=== PATIENT | female | born 1995 | race Caucasian/White ===

== ENCOUNTER 2017-03-04 20:12 | Emergency (ER) | payer BC ==
[~2017-03-04] VITALS: Ht 154.9 cm; Wt 68.0 kg
[2017-03-04 20:13] VITALS: BP 138/90; PULSE 110; RESP 15; TEMP 98.5; O2SAT 100
--- NOTE | 2017-03-04 21:16 | PD ---
HPI Chief Complaint: Injury Time Seen by Provider: 21:09 Travel History International Travel<30 days: No Contact w/Intl Traveler<30days: No Traveled to known affect area: No History of Present Illness HPI 21-year-old white female presents to emergency Department with complaints of right ankle pain after an inversion injury earlier this afternoon. She states that she had heard a pop in her ankle. Since then she's had pain down into her foot. She has attempted to rest it, elevate and ice it without relief. She states the pain is moderate but can be more severe with weightbearing. No alleviating factors. No other injuries. PFS Past Medical History Narrative Medical Anxiety, depression, right ankle sprain, right ankle fracture Anxiety: Yes Depression: Yes Diminished Hearing: No Tetanus Vaccination: < 5 Years Influenza Vaccination: No ?: Not LMP: 02/22/17 : 1 Para: 0 Miscarriage: 1 Past Surgical History Narrative Surgical Tonsillectomy Tonsillectomy: Yes Social History Alcohol Use: Yes Tobacco Use: Yes Substance Use: No Allergies-Medications (Allergen,Severity, Reaction): Coded Allergies: Sulfa (Sulfonamide Antibiotics) (Verified Allergy, Severe, 03/04/17) Reported Meds & Prescriptions Reported Meds & Active Scripts Active Diclofenac Sodium DR (Diclofenac Sodium) 75 Mg Tabdr 75 Mg PO BID Review of Systems General / Constitutional: No: Fever Eyes: No: Visual changes HENT: No: Headaches Cardiovascular: No: Chest Pain or Discomfort Respiratory: No: Shortness of Breath Gastrointestinal: No: Abdominal Pain Genitourinary: No: Dysuria Musculoskeletal: Positive: Arthralgias, Limited ROM, Edema, Pain Skin: No Rash Neurologic: No: Weakness Psychiatric: No: Depression Endocrine: No: Polydipsia Hematologic/Lymphatic: No: Easy Bruising Physical Exam Narrative GENERAL: This is a well-nourished, well-developed patient, in no apparent distress. SKIN: No rashes, ecchymoses or lesions. Warm and dry. HEAD: Atraumatic. Normocephalic. EYES: PERRL, EOMI, no discharge or injection. No scleral icterus. EARS: Clear NOSE: Nasal turbinates appear normal. THROAT: Mucosa pink and moist. Airway patent. NECK: Trachea midline. supple, moves head freely. LUNGS: Clear to auscultation. CV: Regular in rhythm. ABDOMEN: Soft nontender. EXT: No clubbing cyanosis. Examination of the right lower extremity reveals pain to the anterior talar fibula ligament. It is minimal swelling. The skin is intact. Mild tenderness over the lateral malleolus. No pain on the medial malleolus. No pain in the Achilles or heel. No distal forefoot tenderness or pain. Intact sensation with good distal pulses. The skin is intact. No pain in the knee or hip. The left lower extremity as well as upper extremities are unremarkable for acute bony tenderness or deformity. Neurovascular intact. Data Data Last Documented VS Vital Signs Date Time Temp Pulse Resp B/P (MAP) Pulse Ox O2 Delivery O2 Flow Rate FiO2 03/04/17 20:13 98.5 110 15 138/90 (106) 100 Room Air Orders Orders Ankle, Complete ([id number]) (03/04/17 21:12) MDM Medical Decision Making Medical Screen Exam Complete: Yes Emergency Medical Condition: Yes Medical Record Reviewed: Yes Interpretation(s) Right ankle: Negative for acute fracture. Differential Diagnosis MDM: High Differential diagnoses: Fracture, sprain, strain, dislocation, contusion, neurovascular injury Narrative Course X-rays negative for acute fracture. Patient given Juan wrap, crutches, Motrin 600 mg by mouth. This is right ankle sprain Diagnosis Primary Impression: right ankle sprain Patient Instructions: General Instructions Additional Instructions: Rest. Elevation. Ice packs for the next 3 days. Juan wrap and crutches. No weight-bearing and then progress to weight-bearing as tolerated. Medications as directed Follow-up with an orthopedist or your doctor in one week. Return to the ER if any problems Med/Other Pt SpecificInfo: Prescription(s) given Scripts Diclofenac Sodium DR (Diclofenac Sodium DR) 75 Mg Tabdr 75 MG PO BID, #20 TAB 0 Refills Prov: Esteban Singh MD 03/04/17 Disposition: 01 DISCHARGE HOME Condition: Stable Bobby Singleton Mar 04, 2017 21:16
[2017-03-04] MEDS ORDERED: DICL75TA PO (21:26)
[2017-03-04] MEDS ORDERED: IBUPROFEN 600 MG TAB PO ONE (21:30)
--- NOTE | 2017-03-04 21:35 | RADRPT ---
EXAM DATE/TIME: 03/04/2017 21:21 [facility] COMPARISON: No previous studies available for comparison. INDICATIONS : Fell today, heard a pop on lateral side of ankle. MEDICAL HISTORY : None. SURGICAL HISTORY : None. ENCOUNTER: Initial ACUITY: 1 day PAIN SCORE: 7/10 LOCATION: Right lateral side of ankle FINDINGS: Three view exam was performed of the right ankle. The bony structures are in normal alignment. No e vidence of fracture, dislocation, or soft tissue swelling. The ankle mortise is intact. No radiopaq ue foreign bodies are seen. Bony mineralization is normal. CONCLUSION: Normal examination for a patient of this age. Bobby Tatum MD on March 04, 2017 at 21:32 Board Certified Radiologist. This report was verified electronically.
== END 2017-03-04 22:44 | disposition home or self-care (01) ==
LOC: NEPK 20:12
DX: S93.401A Sprain of unspecified ligament of right ankle, initial encounter (principal); F41.9 Anxiety disorder, unspecified; F32.9 Major depressive disorder, single episode, unspecified; X50.9XXA Other and unspecified overexertion or strenuous movements or postures, initial encounter; Z88.2 Allergy status to sulfonamides; Z79.899 Other long term (current) drug therapy; Z72.0 Tobacco use
CPT/HCPCS: 73610; 99283; E0113

== ENCOUNTER 2017-04-23 10:00 | Emergency (ER) | payer OTHER, BC ==
[~2017-04-23] VITALS: Ht 154.9 cm; Wt 68.0 kg
[~2017-04-23 10:00] MED LIST: DICL75TA PO
[2017-04-23 10:03] VITALS: BP 150/90; PULSE 104; RESP 16; TEMP 98; O2SAT 99
[2017-04-23 10:07] VITALS: PULSE 92
[2017-04-23] MEDS ORDERED: NORG1TAB29 PO (10:23)
[2017-04-23] MEDS ORDERED: ONDANSETRON ODT 4 MG TAB PO ONE (10:30)
[2017-04-23] MEDS ORDERED: ACETAMINOPHEN 325 MG TAB PO ONE (10:30)
--- NOTE | 2017-04-23 10:31 | PD ---
HPI Chief Complaint: Head Injury Time Seen by Provider: 10:13 Travel History International Travel<30 days: No Contact w/Intl Traveler<30days: No Traveled to known affect area: No History of Present Illness HPI The patient is a 21-year-old female who presents to the emergency department after closed head injury at work. The patient states she struck the left aspect of her head against a bench while she was vacuuming. The patient states she saw "stars" after she struck her head. The patient then developed a left-sided headache and has had 3 episodes of nausea and vomiting. The patient denies any visual acuity changes, focal deficits, numbness, tingling, or weakness of the extremities. She does complain of a left-sided headache after striking her head with the nausea and vomiting. She denies taking any anticoagulants. She is currently on oral contraceptives. Symptoms are moderate , exacerbated after she struck her head on a bench, and there are no current alleviating factors. The accident occurred at 7 AM. [facility] [place] Past Medical History Medical History: Denies Significant Hx ?: Not : 1 Para: 0 Miscarriage: 1 Past Surgical History Narrative Surgical Tonsillectomy, wisdom tooth surgery Tonsillectomy: Yes Other Surgery: Yes (WISDON TEETH) Social History Alcohol Use: Yes Tobacco Use: Yes Substance Use: No Allergies-Medications (Allergen,Severity, Reaction): Coded Allergies: Sulfa (Sulfonamide Antibiotics) (Verified Allergy, Severe, 04/23/17) Reported Meds & Prescriptions Reported Meds & Active Scripts Active Reported Low-Ogestrel (Norgestrel-Ethinyl Estradiol) 0.3-30 Mg-Mcg Tab 1 Tab PO DAILY Review of Systems Except as stated in HPI: all other systems reviewed are Neg Eyes: No: Blurred Vision HENT: Positive: Headaches, No: Neck Pain Gastrointestinal: Positive: Nausea, Vomiting, No: Abdominal Pain Physical Exam Narrative GENERAL: Awake, alert, pleasant 21-year-old female who appears her stated age and is in no acute respiratory distress. SKIN: Focused skin assessment warm/dry. HEAD: Atraumatic. Normocephalic. No visible cephalohematoma EYES: Pupils equal and round. Pupils are 4 mm bilateral and reactive. EOMs are intact. Patient is able to see fingers at a distance of 2 feet without difficulty. ENT: No nasal bleeding or discharge. Mucous membranes pink and moist. NECK: Trachea midline. No JVD. CARDIOVASCULAR: Regular rate and rhythm. No murmur appreciated. RESPIRATORY: No accessory muscle use. Clear to auscultation. Breath sounds equal bilaterally. GASTROINTESTINAL: Abdomen soft, non-tender, nondistended. MUSCULOSKELETAL: No obvious deformities. No clubbing. No cyanosis. No edema. NEUROLOGICAL: Awake and alert. No obvious cranial nerve deficits. Motor grossly within normal limits. Normal speech. PSYCHIATRIC: Appropriate mood and affect; insight and judgment normal. Data Data Last Documented VS Vital Signs Date Time Temp Pulse Resp B/P (MAP) Pulse Ox O2 Delivery O2 Flow Rate FiO2 04/23/17 10:07 92 04/23/17 10:03 98.[address] Brain W/O Iv Contrast(Rout) (04/23/17 ) Ondansetron Odt (Zofran Odt) (04/23/17 10:30) Acetaminophen (Tylenol) (04/23/17 10:30) MDM Medical Decision Making Medical Screen Exam Complete: Yes Emergency Medical Condition: Yes Medical Record Reviewed: Yes Interpretation(s) Last Impressions Head CT 04/23/17 0000 Signed Impressions: Service Date/Time: Sunday, April 23, 2017 10:54 - CONCLUSION: No acute disease. Ko Lopez MD Differential Diagnosis Differential diagnosis includes closed head injury, skull fracture, hematoma, intracranial hemorrhage, subarachnoid hemorrhage, epidural hematoma, subdural hematoma. Narrative Course The patient was administered oral Zofran ODT and Tylenol by mouth for her headache. Noncontrast CT of the brain was obtained. CT the brain is negative. The patient is advised to have activity as tolerated and follow-up with a primary physician. Return if symptoms worsen or progress. Diagnosis Primary Impression: Closed head injury Qualified Codes: S09.90XA - Unspecified injury of head, initial encounter Patient Instructions: General Instructions Additional Instructions: Medications as directed. Please provide the patient a copy of her CT results at discharge. Follow-up with your primary physician and/or occupational physician. Med/Other Pt SpecificInfo: Prescription(s) given Scripts Ondansetron Odt (Zofran Odt) 4 Mg Tab 4 MG SL Q6HR Y for Nausea/Vomiting, #7 TAB 0 Refills Prov: Lamotne Ferguson MD 04/23/17 Ibuprofen (Ibuprofen) 600 Mg Tab 600 MG PO Q6H Y for Pain/Inflammation, #15 TAB 0 Refills Prov: Lamonte Ferguson MD 04/23/17 Disposition: 01 DISCHARGE HOME Condition: Stable Lamonte Ferguson MD Apr 23, 2017 10:31
--- NOTE | 2017-04-23 11:14 | RADRPT ---
EXAM DATE/TIME: 04/23/2017 10:54 [facility] COMPARISON: No previous studies available for comparison. INDICATIONS : Hit right side of head, headache, vomiting. RADIATION DOSE: 32.84 CTDIvol (mGy) MEDICAL HISTORY : None SURGICAL HISTORY : Umbilical hernia repair. ENCOUNTER: Initial ACUITY: 1 day PAIN SCALE: 6/10 LOCATION: Right frontal TECHNIQUE: Multiple contiguous axial images were obtained of the head. Using automated exposure control and adj ustment of the mA and/or kV according to patient size, radiation dose was kept as low as reasonably a chievable to obtain optimal diagnostic quality images. DICOM format image data is available electro nically for review and comparison. FINDINGS: CEREBRUM: The ventricles are normal for age. No evidence of midline shift, mass lesion, hemorrhage or acute in farction. No extra-axial fluid collections are seen. POSTERIOR FOSSA: The cerebellum and brainstem are intact. The 4th ventricle is midline. The cerebellopontine angle i s unremarkable. EXTRACRANIAL: The visualized portion of the orbits is intact. SKULL: The calvaria is intact. No evidence of skull fracture. CONCLUSION: No acute disease. Ko Lopez MD on April 23, 2017 at 11:11 Board Certified Radiologist. This report was verified electronically.
[2017-04-23] MEDS ORDERED: IBUP-232 PO (11:24)
[2017-04-23] MEDS ORDERED: ZOFR4TAB3 SL (11:24)
== END 2017-04-23 12:08 | disposition home or self-care (01) ==
LOC: NEPD 10:00
DX: S09.90XA Unspecified injury of head, initial encounter (principal); W22.09XA Striking against other stationary object, initial encounter; Y93.E3 Activity, vacuuming; Y99.0 Civilian activity done for income or pay
CPT/HCPCS: 70450; 99284

== ENCOUNTER → 2017-07-07 | Outpatient (CLI) | payer BC ==
[~2017-07-07] MED LIST changes: -DICL75TA PO; +IBUP-232 PO; +NORG1TAB29 PO; +ZOFR4TAB3 SL
== END ==
LOC: CPRE 12:33
PROVIDERS: ATTEND Obstetrics & Gynecology
DX: Z01.812 Encounter for preprocedural laboratory examination (principal); R10.2 Pelvic and perineal pain; N94.6 Dysmenorrhea, unspecified; N94.10 Unspecified dyspareunia
CPT/HCPCS: 36415; 84703

== ENCOUNTER → 2017-07-13 | Day surgery (SDC) | payer BC ==
[~2017-07-13] VITALS: Ht 154.9 cm; Wt 89.5 kg
[~2017-07-13] MED LIST changes: +*MEPERIDINE 25 MG INJ VIAL PERIprocedural Use ONLY ONE; +*morphine SULFATE 4 MG/ML PERIprocedure ONLY ONE; +CHLORHEXIDINE GLUCONATE 2 % 1 PACK (2 CLOTHS) TOPICAL PRN; +DEXAMETHASONE SOD PHOS 4 MG/ML VIAL IV ONE; +DO NOT ADM ANY ANTICOAGULANT DRUGS PRN; +GLYCOPYRROLATE 1 MG/5 ML SYRINGE IV PUSH ONE; +KETOROLAC TROMETHAMINE 30 MG/ML (IVP) VIAL IV PUSH ONE; +LACTATED RINGER'S 1000 ML IV PRN; +LIDOCAINE HCL 1% PF 5 ML SYRINGE OTHER ONE; +METOPROLOL TARTRATE 25 MG TAB PO PRN; +MIDAZOLAM HCL 2 MG/2 ML VIAL ONE; +NEOSTIGMINE 5 MG/5 ML SYRINGE IV PUSH ONE; -NORG1TAB29 PO; +ONDANSETRON HCL 4 MG/2 ML VIAL IV ONE; +ONDANSETRON HCL 4 MG/2 ML VIAL IV PUSH PRN; +POVIDONE IODINE 5% (ANTISEPSIS KIT) 4 APPLICATIONS EACH NARE PRN; +PROMETHAZINE INJ 25 MG/ML VIAL ONE; +PROPOFOL 200 MG/20 ML AMP IV ONE; +ROCURONIUM INJ 50 MG/5 ML SYRINGE IV PUSH ONE; +SODIUM CHLORID 0.9% 500 ML IV PRN; -ZOFR4TAB3 SL; +ePHEDrine/NS 25 MG/5 ML SYRINGE IV ONE; +oxyCODONE/ACETAMINOPHEN 5 MG/325 MG TAB PO PRN
--- NOTE | 2017-07-13 13:01 | MP ---
cc: Lashaun Campos MD DATE OF OPERATION: 07/13/2017 PREOPERATIVE DIAGNOSES: 1. Menorrhagia despite oral contraceptive pills. 2. Pelvic pain. 3. Dyspareunia. 4. Dysmenorrhea. POSTOPERATIVE DIAGNOSES: 1. Menorrhagia despite oral contraceptive pills. 2. Pelvic pain. 3. Dyspareunia. 4. Dysmenorrhea. PROCEDURE: 1. Examination under anesthesia. 2. Dilation and curettage of the uterus. 3. Hysteroscopic exam. 4. Laparoscopic exam. ANESTHESIA: General. SURGEON: Lashaun Campos MD FINDINGS: On examination under anesthesia the vagina was clean. The cervix was nulliparous, small, without any lesions. There was a small amount of cervical stenosis present. The uterus was normal in size, shape and consistency and freely mobile. The adnexa was negative for masses. The hysteroscopic exam revealed a normal uterine cavity. There was quite a bit of endometrial tissue and slough. There was no polyp or myoma seen. The laparoscopic exam revealed a normal uterus, normal tubes in length and caliber, normal ovaries, normal ovarian fossa, normal posterior and anterior cul-de-sac. Normal upper abdomen, normal liver and gallbladder. COMPLICATIONS: None. COUNTS: Correct. ESTIMATED BLOOD LOSS: Minimal. DISPOSITION: The patient tolerated the procedure well and went to the recovery room in good condition. PROCEDURE IN DETAIL: The patient was taken to the operating room, identified by name band and verbally. She was given a general anesthetic, prepped and draped in the usual sterile fashion in dorsal lithotomy position. A time-out was taken and the examination under anesthesia was carried out after the Morris catheter was inserted with the above findings. A speculum was placed in the vagina, the anterior lip of the cervix was grasped with a single-tooth tenaculum. The cervix was serially dilated. There was some problem dilating her cervix. She did have a bit of cervical stenosis but once we got the cervix open a little, it went fairly well. The hysteroscope was inserted and the entire endometrial cavity was visualized. There may have been a small polyp but I could not verify that for sure. At the termination of this, we did a sharp curettage with a #1 sharp curette, gently curetting the entire endometrium and the specimen was sent for pathologic evaluation. Hulka clamp was placed and attention was turned to the umbilical area. A small subumbilical incision was made and a 5-mm trocar was placed in the incision and the peritoneum was entered under direct vision without difficulty. A pneumoperitoneum was created with 3 liters of CO2 and the entire pelvis was evaluated with the above findings. There was no endometriosis, scar tissue or other pathologic condition associated with this. At this point we turned the camera upwards and looked at the liver and upper abdomen; that was all normal as well. The appendix was not visualized but the area around it was and there was no scar tissue and no evidence of chronic inflammation. At this point a second puncture was placed inferior lateral to the umbilicus on the left of the 5-mm trocar to manipulate the ovaries to look at the ovarian fossa and to better see the posterior cul-de-sac. Again we carefully inspected all these areas. There was no endometriosis or signs of endometriosis present. There was no scar tissue. Her pelvis looked perfectly normal. At this time we removed the laparoscope under direct vision, released the air from the second puncture and repaired the incisions with a 4-0 Monocryl in subcuticular fashion. The patient tolerated the procedure well and went to the recovery room in good condition. R. MD POLA Garvin/DOYLE , 12:37 PM , 01:00 PM
[2017-07-13 14:42] VITALS: BP 113/65; PULSE 67; RESP 20; TEMP 98.6; O2SAT 100
== END | disposition home or self-care (01) ==
LOC: HSDC 10:19
PROVIDERS: ATTEND Obstetrics & Gynecology
DX: N92.0 Excessive and frequent menstruation with regular cycle (principal); N94.10 Unspecified dyspareunia; N94.6 Dysmenorrhea, unspecified
CPT/HCPCS: 00840; 49320; 58558; 88305; J1100; J1885; J2175; J2250; J2270; J2405; J2550; J2710; J3010

== ENCOUNTER 2017-08-22 10:35 | Emergency (ER) | payer BC ==
[~2017-08-22] VITALS: Ht 154.9 cm; Wt 78.0 kg
[~2017-08-22 10:35] MED LIST changes: -*MEPERIDINE 25 MG INJ VIAL PERIprocedural Use ONLY ONE; -*morphine SULFATE 4 MG/ML PERIprocedure ONLY ONE; -CHLORHEXIDINE GLUCONATE 2 % 1 PACK (2 CLOTHS) TOPICAL PRN; -DEXAMETHASONE SOD PHOS 4 MG/ML VIAL IV ONE; -DO NOT ADM ANY ANTICOAGULANT DRUGS PRN; -GLYCOPYRROLATE 1 MG/5 ML SYRINGE IV PUSH ONE; -KETOROLAC TROMETHAMINE 30 MG/ML (IVP) VIAL IV PUSH ONE; -LACTATED RINGER'S 1000 ML IV PRN; -LIDOCAINE HCL 1% PF 5 ML SYRINGE OTHER ONE; -METOPROLOL TARTRATE 25 MG TAB PO PRN; -MIDAZOLAM HCL 2 MG/2 ML VIAL ONE; -NEOSTIGMINE 5 MG/5 ML SYRINGE IV PUSH ONE; -ONDANSETRON HCL 4 MG/2 ML VIAL IV ONE; -ONDANSETRON HCL 4 MG/2 ML VIAL IV PUSH PRN; -POVIDONE IODINE 5% (ANTISEPSIS KIT) 4 APPLICATIONS EACH NARE PRN; -PROMETHAZINE INJ 25 MG/ML VIAL ONE; -PROPOFOL 200 MG/20 ML AMP IV ONE; -ROCURONIUM INJ 50 MG/5 ML SYRINGE IV PUSH ONE; -SODIUM CHLORID 0.9% 500 ML IV PRN; -ePHEDrine/NS 25 MG/5 ML SYRINGE IV ONE; -oxyCODONE/ACETAMINOPHEN 5 MG/325 MG TAB PO PRN
[2017-08-22 10:58] VITALS: BP 151/74; PULSE 80; RESP 24; TEMP 99; O2SAT 100
[2017-08-22] MEDS ORDERED: DIAZ5TAB PO (11:10)
[2017-08-22 12:03] LABS: AUTOMATED NEUTROPHIL # 5.3 TH/MM3 (1.8-7.7); BASOPHIL % 0.6 % (0.0-2.0); EOSINOPHIL # 0.2 TH/MM3 (0-0.4); EOSINOPHIL % 1.9 % (0.0-4.0); HEMATOCRIT 39.5 % (35.0-46.0); HEMOGLOBIN 13.8 GM/DL (11.6-15.3); LYMPH % 27.6 % (9.0-44.0); LYMPHOCYTE # 2.3 TH/MM3 (1.0-4.8); MEAN CELL VOLUME 87.4 FL (80.0-100.0); MEAN CORPUSCULAR HEMOGLOBIN 30.4 PG (27.0-34.0); MEAN CORPUSCULAR HGB CONC 34.8 % (32.0-36.0); MEAN PLATELET VOLUME 8.2 FL (7.0-11.0); MONO % 6.3 % (0.0-8.0); MONOCYTE # 0.5 TH/MM3 (0-0.9); NEUT % 63.6 % (16.0-70.0); PLATELET COUNT 365 TH/MM3 (150-450); RED BLOOD COUNT 4.52 MIL/MM3 (4.00-5.30); RED CELL DISTRIBUTION WIDTH 12.5 % (11.6-17.2); WHITE BLOOD COUNT 8.3 TH/MM3 (4.0-11.0)
--- NOTE | 2017-08-22 12:12 | PD ---
HPI Chief Complaint: Bleeding Time Seen by Provider: 11:11 Travel History International Travel<30 days: No Contact w/Intl Traveler<30days: No Traveled to known affect area: No History of Present Illness HPI The patient was seen and examined in the presence of the nurse. She complains of vaginal bleeding. She is also having pelvic cramping. Duration is 12 hours. Severity the bleeding is moderate to severe in nature. She has history of heavy vaginal bleeding and chronic pelvic pain. She had a laparoscopy and D& C and hysteroscopy 5 weeks ago. Yesterday evening the bleeding started for the first time since that procedure. She is not on control. She took 2 tests 2 weeks ago and one was positive and one was negative so she does not know if she is . No alleviating factors. No presyncopal symptoms. No exacerbating factors. PFSH Past Medical History Psychiatric: Yes Reproductive: Yes ?: Not LMP: 08/21/17 : 1 Para: 0 Miscarriage: 1 Past Surgical History Oral Surgery: Yes (T&A, WISDOM TEETH) Tonsillectomy: Yes Other Surgery: Yes (exploratory LAP possible endometreosis) Social History Alcohol Use: No Tobacco Use: Yes (05/10 ppd) Substance Use: No Allergies-Medications (Allergen,Severity, Reaction): Coded Allergies: Sulfa (Sulfonamide Antibiotics) (Verified Allergy, Severe, SWOLLEN THROAT , ITCHING, HIVES, 08/22/17) Reported Meds & Prescriptions Reported Meds & Active Scripts Active Reported Diazepam 5 Mg Tab 5 Mg PO BID PRN Review of Systems General / Constitutional: No: Fever Eyes: No: Visual changes HENT: No: Headaches Cardiovascular: No: Chest Pain or Discomfort Respiratory: No: Shortness of Breath Gastrointestinal: No: Abdominal Pain Genitourinary: Positive: Pelvic Pain, Vaginal Bleeding, No: Dysuria Musculoskeletal: No: Pain Skin: No Rash Neurologic: No: Weakness Psychiatric: No: Depression Endocrine: No: Polydipsia Hematologic/Lymphatic: No: Easy Bruising Physical Exam Narrative GENERAL: Well-nourished, well-developed patient in no apparent distress. SKIN: Focused skin assessment reveals no rash and nodules. Skin is Warm and dry. HEAD: Atraumatic. Normocephalic. EYES: Pupils equal and round. No scleral icterus. No injection or drainage. ENT: No nasal bleeding or discharge. Mucous membranes pink and moist. NECK: Trachea midline. No JVD. CARDIOVASCULAR: Regular rate and rhythm. No murmur appreciated. RESPIRATORY: No accessory muscle use. Clear to auscultation. Breath sounds equal bilaterally. GASTROINTESTINAL: Abdomen soft, non-tender, nondistended. Hepatic and splenic margins not palpable. MUSCULOSKELETAL: No obvious deformities. No clubbing. No cyanosis. No edema. NEUROLOGICAL: Awake and alert. No obvious cranial nerve deficits. Motor grossly within normal limits. Normal speech. PSYCHIATRIC: Appropriate mood and affect; insight and judgment normal. Pelvic: Speculum exam was done. There is a significant amount of vaginal bleeding. I used the large Q-tips to mop up some of the blood but the vault is about a quarter full. No cervical motion tenderness. There is some uterine tenderness. No adnexal mass. Data Data Last Documented VS Vital Signs Date Time Temp Pulse Resp B/P (MAP) Pulse Ox O2 Delivery O2 Flow Rate FiO2 08/22/17 10:58 99.0 80 24 151/74 (99) 100 Orders Orders Iv Access Insert/Monitor (08/22/17 11:27) Complete Blood Count With Diff (08/22/17 11:27) Beta Hcg (Quant/Titer) (08/22/17 11:27) Basic Metabolic Panel (Bmp) (08/22/17 11:27) Oxycodone-Acetamin 5-325 Mg (Percocet (08/22/17 13:30) Labs Laboratory Tests Test 08/22/17 11:35 White Blood Count 8.3 TH/MM3 Red Blood Count 4.52 MIL/MM3 Hemoglobin 13.8 GM/DL Hematocrit 39.5 % Mean Corpuscular Volume 87.4 FL Mean Corpuscular Hemoglobin 30.4 PG Mean Corpuscular Hemoglobin Concent 34.8 % Red Cell Distribution Width 12.5 % Platelet Count 365 TH/MM3 Mean Platelet Volume 8.2 FL Neutrophils (%) (Auto) 63.6 % Lymphocytes (%) (Auto) 27.6 % Monocytes (%) (Auto) 6.3 % Eosinophils (%) (Auto) 1.9 % Basophils (%) (Auto) 0.6 % Neutrophils # (Auto) 5.3 TH/MM3 Lymphocytes # (Auto) 2.3 TH/MM3 Monocytes # (Auto) 0.5 TH/MM3 Eosinophils # (Auto) 0.2 TH/MM3 Basophils # (Auto) 0.0 TH/MM3 CBC Comment DIFF FINAL Differential Comment Blood Urea Nitrogen 5 MG/DL Creatinine 0.71 MG/DL Random Glucose 85 MG/DL Calcium Level 9.1 MG/DL Sodium Level 141 MEQ/L Potassium Level 3.9 MEQ/L Chloride Level 108 MEQ/L Carbon Dioxide Level 26.4 MEQ/L Anion Gap 7 MEQ/L Estimat Glomerular Filtration Rate 105 ML/MIN Human Chorionic Gonadotropin, Quant LESS THAN 1 MIU/ML MDM Medical Decision Making Medical Screen Exam Complete: Yes Emergency Medical Condition: Yes Medical Record Reviewed: Yes Differential Diagnosis Dysfunctional uterine bleeding, ectopic , miscarriage, anemia Narrative Course I have reviewed the patient's electronic medical record. I reviewed her operative note from 5 weeks ago IV placed and labs sent CBC shows normal hemoglobin of 13.8 Beta hCG is negative Metabolic profile is normal I reviewed the case in detail with the patient's pest control supervisor Dr. Campos. He will see the patient later this week in follow-up. No specific other treatments recommended. Vital signs are normal. He is done a von Willebrand's and coagulation workup on her which was negative. He is ultrasounded her. Diagnosis Primary Impression: Vaginal bleeding Additional Impression: Chronic pelvic pain in female Additional Instructions: Follow-up with Dr. Campos Med/Other Pt SpecificInfo: Other Disposition: 01 DISCHARGE HOME Condition: Stable Bobby Rincon MD Aug 22, 2017 12:12
[2017-08-22 12:25] LABS: BICARBONATE 26.4 MEQ/L (21.0-32.0); BLOOD UREA NITROGEN 5 MG/DL (7-18); CALCIUM 9.1 MG/DL (8.5-10.1); CHLORIDE 108 MEQ/L (98-107); CREATININE 0.71 MG/DL (0.50-1.00); GLOMERULAR FILTRATION RATE 105 ML/MIN (>89); GLUCOSE,RANDOM 85 MG/DL (74-106); SODIUM (NA) 141 MEQ/L (136-145)
[2017-08-22] MEDS ORDERED: oxyCODONE/ACETAMINOPHEN 5 MG/325 MG TAB PO ONE (13:30)
[2017-08-22 13:35] VITALS: BP 130/70; PULSE 63; RESP 18; O2SAT 99
== END 2017-08-22 14:32 | disposition home or self-care (01) ==
LOC: NEPC 10:35
DX: N93.9 Abnormal uterine and vaginal bleeding, unspecified (principal); R10.2 Pelvic and perineal pain; G89.29 Other chronic pain; F17.210 Nicotine dependence, cigarettes, uncomplicated; Z88.2 Allergy status to sulfonamides; Z79.899 Other long term (current) drug therapy
CPT/HCPCS: 80048; 84702; 85025; 99283

== ENCOUNTER 2017-09-22 14:10 | Emergency (ER) | END 2017-09-22 16:40 | disposition home or self-care (01) | DX: S63.616A Unspecified sprain of right little finger, initial encounter (principal); W22.09XA Striking against other stationary object, initial encounter; Y93.89 Activity, other specified ==

== ENCOUNTER 2017-09-26 11:16 | Emergency (ER) | payer BC ==
[~2017-09-26] VITALS: Ht 154.9 cm; Wt 78.0 kg
[~2017-09-26 11:16] MED LIST changes: +DIAZ5TAB PO
[2017-09-26 11:43] VITALS: BP 130/70; PULSE 87; RESP 20; TEMP 98.7; O2SAT 99
[2017-09-26] MEDS ORDERED: birth control pill (11:57)
--- NOTE | 2017-09-26 12:13 | PD ---
HPI Chief Complaint: Fall Time Seen by Provider: 11:48 Travel History International Travel<30 days: No Contact w/Intl Traveler<30days: No Traveled to known affect area: No History of Present Illness HPI 21-year-old female presents to the emergency room for evaluation of left upper extremity pain after falling down an unknown number of stairs just prior to arrival. Patient states she was at the top of her stairs in her apartment building and slipped on rain water. She fell down multiple steps. She denies hitting her head or loss consciousness. She had no syncopal episode. Her was with her but did not actually see her fall. States when she screamed, he looked down at her and saw her sitting on the bottom 2 steps. States when she stood up she felt lightheaded and nauseous because of the pain. She has been ambulatory since then. Pain is localized to the left volar wrist , left posterior shoulder blade, left anterior shoulder, and left side of the neck. She has not taken anything for pain. She denies any upper or lower extremity paresthesias, other extremity pain, back pain, or headache. Denies any chronic medical conditions or daily medications. Last menstrual cycle was this month. PFSH Past Medical History Psychiatric: Yes Reproductive: Yes (OVARIAN CYSTS) Tetanus Vaccination: Unknown Influenza Vaccination: No ?: Not LMP: 09/2017 : 2 Para: 0 Miscarriage: 2 Dilation and Curettage (D&C): Yes (LAPAROSCOPIC) Past Surgical History Oral Surgery: Yes (T&A, WISDOM TEETH) Tonsillectomy: Yes Other Surgery: Yes (exploratory LAP possible endometreosis, HYSTEROSCOPY) Social History Alcohol Use: No Tobacco Use: Yes (6-7 CIGARETTES DAILY) Substance Use: No Allergies-Medications (Allergen,Severity, Reaction): Coded Allergies: Sulfa (Sulfonamide Antibiotics) (Verified Allergy, Severe, SWOLLEN THROAT , ITCHING, HIVES, 09/26/17) Reported Meds & Prescriptions Reported Meds & Active Scripts Active Reported [ control pill] Review of Systems Except as stated in HPI: all other systems reviewed are Neg Physical Exam Narrative GENERAL: Well-nourished, well-developed female no acute distress. Afebrile. Ambulatory. SKIN: Focused skin assessment warm/dry. No erythema or ecchymosis. HEAD: Normocephalic. EYES: No scleral icterus. No injection or drainage. NECK: Supple, trachea midline. No JVD or lymphadenopathy. Full range of motion. No midline tenderness. CARDIOVASCULAR: Regular rate and rhythm without murmurs, gallops, or rubs. RESPIRATORY: Breath sounds equal bilaterally. No accessory muscle use. MUSCULOSKELETAL: No cyanosis. No deformity. No obvious edema. 2+ radial pulse on the left. Limited range of motion of the left upper extremity secondary to pain. Patient is extremely sensitive to even light palpation. BACK: Nontender without obvious deformity. No CVA tenderness. Data Data Last Documented VS Vital Signs Date Time Temp Pulse Resp B/P (MAP) Pulse Ox O2 Delivery O2 Flow Rate FiO2 09/26/17 11:43 98.7 87 20 130/70 (90) 99 Orders Orders Shoulder, Complete (>2vws) (09/26/17 ) Scapula (09/26/17 ) Wrist, Complete ([id number]) (09/26/17 ) Ct Cerv Spine W/O Contrast (09/26/17 ) Ibuprofen (Motrin) (09/26/17 12:15) MDM Medical Decision Making Medical Screen Exam Complete: Yes Emergency Medical Condition: Yes Medical Record Reviewed: Yes Differential Diagnosis Fracture, strain, contusion, dislocation, sprain Narrative Course 21-year-old female presents to the emergency room for evaluation of left neck, left shoulder, and left wrist pain after falling down an unknown number of stairs prior to arrival. Patient slipped on water in the labs. She denies hitting her head or loss of consciousness. She reports significant pain in the left upper extremity with movement. Denies any other significant injuries. She has been ambulatory. No paresthesias. Physical exam is reassuring. There is no obvious deformity, edema, ecchymosis, erythema. She is neurovascularly intact with 2+ radial pulse. Radial, ulnar, and median nerves intact. Patient has extreme tenderness to even light palpation. She is slightly histrionic. She was given Motrin for pain. X-rays of the wrist, shoulder, and scapula are negative. CT of the neck is negative. Patient was reassured and told to follow -up with her primary care physician or return to the emergency room for worsening symptoms. She understands and agrees to plan. Diagnosis Primary Impression: Cervical strain Qualified Codes: S16.1XXA - Strain of muscle, fascia and tendon at neck level , initial encounter Additional Impressions: Left wrist sprain Qualified Codes: S63.502A - Unspecified sprain of left wrist, initial encounter Left shoulder strain Qualified Codes: S46.912A - Strain of unspecified muscle, fascia and tendon at shoulder and upper arm level, left arm, initial encounter Referrals: Primary Care Physician Additional Instructions: Rest and drink plenty of fluids. Take ibuprofen with food as directed, as needed for pain. Apply ice to the affected area for 20 minutes at a time, as needed for pain and swelling. Follow-up with a primary care physician. Return to the emergency room for worsening symptoms. Med/Other Pt SpecificInfo: Prescription(s) given Disposition: 01 DISCHARGE HOME Condition: Stable Alina Schilling September 26, 2017 12:13
[2017-09-26] MEDS ORDERED: IBUPROFEN 600 MG TAB PO ONE (12:15)
--- NOTE | 2017-09-26 12:54 | RADRPT ---
EXAM DATE/TIME: 09/26/2017 12:33 [facility] COMPARISON: No previous studies available for comparison. INDICATIONS : Patient states she fell down the stairs today, left scapula pain. MEDICAL HISTORY : None. SURGICAL HISTORY : None. ENCOUNTER: Initial ACUITY: 1 day PAIN SCORE: 8/10 LOCATION: Left Scapula FINDINGS: Two view examination of the left scapula demonstrates no evidence of fracture. The glenohumeral and acromioclavicular joints are maintained. Bony mineralization is normal. CONCLUSION: Unremarkable examination of the left scapula. David Reno MD on September 26, 2017 at 12:52 Board Certified Radiologist. This report was verified electronically.
--- NOTE | 2017-09-26 13:00 | RADRPT ---
EXAM DATE/TIME: 09/26/2017 12:31 [facility] COMPARISON: No previous studies available for comparison. INDICATIONS : Patient states she fell down the stairs today, left shoulder pain. MEDICAL HISTORY : None. SURGICAL HISTORY : None. ENCOUNTER: Initial ACUITY: 1 day PAIN SCORE: 9/10 LOCATION: Bilateral chest FINDINGS: Multiple view examination of the left shoulder demonstrates no evidence of fracture or dislocation. The glenohumeral and acromioclavicular joints are maintained. There is normal range of motion betwee n internal and external rotation. Bony mineralization is normal. CONCLUSION: No acute fracture. Tomi Siddiqui MD on September 26, 2017 at 12:58 Board Certified Radiologist. This report was verified electronically.
--- NOTE | 2017-09-26 13:01 | RADRPT ---
EXAM DATE/TIME: 09/26/2017 12:37 [facility] COMPARISON: No previous studies available for comparison. INDICATIONS : Patient states she fell down the stairs today, left wrist pain. MEDICAL HISTORY : None. SURGICAL HISTORY : None. ENCOUNTER: Initial ACUITY: 1 day PAIN SCORE: 7/10 LOCATION: Left Wrist FINDINGS: Three view examination of the left wrist demonstrates no soft tissue swelling, dislocation, or fractu re. The carpal bones are in normal alignment. The joint spaces are maintained. Bony mineralization is normal. CONCLUSION: No acute fracture. Tomi Siddiqui MD on September 26, 2017 at 12:59 Board Certified Radiologist. This report was verified electronically.
--- NOTE | 2017-09-26 13:02 | RADRPT ---
EXAM DATE/TIME: 09/26/2017 12:46 [facility] COMPARISON: No previous studies available for comparison. INDICATIONS : Patient fell down stairs RADIATION DOSE: 21.99 CTDIvol (mGy) MEDICAL HISTORY : None SURGICAL HISTORY : None. ENCOUNTER: Initial ACUITY: 1 day PAIN SCALE: 8/10 LOCATION: neck TECHNIQUE: Volumetric scanning of the cervical spine was performed. Multiplanar reconstructions in the sagittal, coronal and oblique axial planes were performed. Using automated exposure control and adjustment o f the mA and/or kV according to patient size, radiation dose was kept as low as reasonably achievable to obtain optimal diagnostic quality images. DICOM format image data is available electronically f or review and comparison. FINDINGS: VERTEBRAE: Normal vertebral body height. ALIGNMENT: No evidence of subluxation. C2-C3: The bony spinal canal is normal in size. No evidence of disc bulge or herniation. The neural forami na are bilaterally patent. C3-C4: The bony spinal canal is normal in size. No evidence of disc bulge or herniation. The neural forami na are bilaterally patent. C4-C5: The bony spinal canal is normal in size. No evidence of disc bulge or herniation. The neural forami na are bilaterally patent. C5-C6: The bony spinal canal is normal in size. No evidence of disc bulge or herniation. The neural forami na are bilaterally patent. C6-C7: The bony spinal canal is normal in size. No evidence of disc bulge or herniation. The neural forami na are bilaterally patent. C7-T1: The bony spinal canal is normal in size. No evidence of disc bulge or herniation. The neural forami na are bilaterally patent. CONCLUSION: No fracture or subluxation. Tomi Siddiqui MD on September 26, 2017 at 12:59 Board Certified Radiologist. This report was verified electronically.
[2017-09-26] MEDS ORDERED: IBUP1TAB7 PO (13:15)
== END 2017-09-26 15:15 | disposition home or self-care (01) ==
LOC: NEPD 11:16
DX: S16.1XXA Strain of muscle, fascia and tendon at neck level, initial encounter (principal); S63.502A Unspecified sprain of left wrist, initial encounter; S46.912A Strain of unspecified muscle, fascia and tendon at shoulder and upper arm level, left arm, initial encounter; F17.210 Nicotine dependence, cigarettes, uncomplicated; W10.9XXA Fall (on) (from) unspecified stairs and steps, initial encounter; Y92.038 Other place in apartment as the place of occurrence of the external cause
CPT/HCPCS: 72125; 73010; 73030; 73110; 99284; L0150; L3908